=== PATIENT | male | born 1935 ===

== ENCOUNTER 2017-09-06 12:26 | Emergency (ER) | payer SELFPAY ==
[2017-09-06 13:08] VITALS: RESP 18; TEMP 98.3
[2017-09-06 14:44] LABS: BASO % 0.6 % (0.0-2.0); EOS # 0.2 K/uL (0.0-0.7); EOS % 2.6 % (0.0-4.0); HEMOGLOBIN 13.5 g/dL (12.0-18.0); LYMPH # 1.9 K/uL (1.0-4.3); LYMPH % 24.3 % (20.0-40.0); MEAN CELL VOLUME 87.8 fl (80.0-94.0); MEAN CORPUSCULAR HEMOGLOBIN 29.8 pg (27.0-31.0); MEAN PLATELET VOLUME 7.8 fl (7.2-11.7); MONO # 0.7 K/uL (0.0-0.8); MONO % 8.6 % (0.0-10.0); NEUT % 63.9 % (50.0-75.0); RBC 4.52 Mil/uL (4.40-5.90); RED CELL DISTRIBUTION WIDTH 14.5 % (11.5-14.5); WHITE BLOOD COUNT 7.8 K/uL (4.8-10.8)
[2017-09-06 14:56] LABS: ALB/GLOB RATIO 1.3 (1.0-2.1); ALBUMIN 4.4 g/dL (3.5-5.0); ALT/SGPT 26 U/L (21-72); AST/SGOT 30 U/L (17-59); BLOOD UREA NITROGEN 16 mg/dl (9-20); CALCIUM 9.4 mg/dL (8.4-10.2); GFR AFRICAN-AMERICAN > 60; GFR NON-AFRICAN AMERICAN > 60
--- NOTE | 2017-09-06 14:56 | RAD ---
HISTORY: leg swelling COMPARISON: No prior. TECHNIQUE: Chest PA and lateral FINDINGS: LUNGS: Confluent opacity in the right apex with evidence of volume loss. PLEURA: Pleural thickening versus loculated effusion in the right apex. Small effusion versus scarring in the right lung base. Pleural thickening in the left apex and along the left lateral aspect of the pleural cavity. CARDIOVASCULAR: Mildly enlarged cardiomediastinal silhouette. On while descending aorta. Right deviation of the trachea. OSSEOUS STRUCTURES: The osseous structures demonstrate degenerative changes. VISUALIZED UPPER ABDOMEN: Upper abdomen is suboptimally evaluated. OTHER FINDINGS: None. IMPRESSION: Confluent opacity in the right apex which demonstrates evidence of volume loss. Pleural thickening versus loculated effusion in right apex. Possible right-sided effusion. Chest CT recommended for better evaluation.
[2017-09-06 15:04] LABS: B-TYPE NATRIURETIC PEPTIDE 95.2 pg/ml (0-900)
--- NOTE | 2017-09-06 16:19 | US ---
HISTORY: L leg . PRIORS: None. FINDINGS: 2-D, color and duplex Doppler analysis of the lower extremity venous circulation using routine protocol from the femoral veins through the popliteal veins. Venous compressibility: Normal. Flow and augmentation patterns: Normal. Visualized veins upper third of calf: Normal. On vascular irregular fluid collection in the popliteal fossa. Punctate calcification noted. . There is subcutaneous edema in the calf. Unremarkable right common femoral vein. IMPRESSION: No sonographic or Doppler evidence for DVT in left lower extremity. Other findings as above.
--- NOTE | 2017-09-06 16:29 | ED PDOC ---
Lower Extremity Pain/Injury Time Seen by Provider: 09/06/17 13:39 Chief Complaint (Nursing): Lower Extremity Problem/Injury Chief Complaint (Provider): Lower Extremity Problem/Injury History Per: Patient, Family History/Exam Limitations: no limitations Onset/Duration Of Symptoms: Days (x5) Current Symptoms Are (Timing): Still Present Additional Complaint(s): 82 y/o male presents to the ED for left leg pain, onset five days ago. Patient states he's had atraumatic swelling to the entire left leg for the past five days. Dr. Pace evaluated today and advised hi to come to the ED to rule out DVT. Denies chest pain, shortness of breath, hemoptysis, history of DVT or PE, weakness, and history of CHF. Pt. also c/o L sided lower back pain x 2-3 days. Denies trauma, abdominal pain, hematuria, dysuria. Of note, pain is worse with movement. Past Medical History Reviewed: Historical Data, Nursing Documentation, Vital Signs Vital Signs: Last Vital Signs Temp 98.3 F 09/06/17 13:04 Pulse 50 L 09/06/17 13:04 Resp 18 09/06/17 13:04 BP 136/64 09/06/17 13:04 Pulse Ox 100 09/06/17 13:04 - Medical History PMH: No Chronic Diseases Denies: CHF, Deep Vein Thrombosis, Pulmonary Embolism - Surgical History Surgical History: No Surg Hx - Family History Family History: States: Unknown Family Hx - Allergies Allergies/Adverse Reactions: Allergies Allergy/AdvReac Type Severity Reaction Status Date / Time No Known Allergies Allergy Verified 09/06/17 13:03 Review of Systems ROS Statement: Except As Marked, All Systems Reviewed And Found Negative Cardiovascular: Negative for: Chest Pain Respiratory: Negative for: Shortness of Breath, Hemoptysis Musculoskeletal: Positive for: Leg Pain (left leg swelling) Neurological: Negative for: Weakness Physical Exam - Reviewed Nursing Documentation Reviewed: Yes Vital Signs Reviewed: Yes - Physical Exam Appears: Positive for: Well, Non-toxic, No Acute Distress Head Exam: Positive for: ATRAUMATIC, NORMAL INSPECTION, NORMOCEPHALIC Skin: Positive for: Normal Color, Warm. Negative for: Rash Eye Exam: Positive for: Normal appearance ENT: Positive for: Normal ENT Inspection Neck: Positive for: Normal, Painless ROM Cardiovascular/Chest: Positive for: Regular Rate, Rhythm Respiratory: Positive for: Normal Breath Sounds. Negative for: Respiratory Distress Gastrointestinal/Abdominal: Positive for: Normal Exam, Soft. Negative for: Tenderness Back: Positive for: Normal Inspection, Muscle Spasm (L sided paralumbar muscle spasm ). Negative for: L CVA Tenderness, R CVA Tenderness, Vertebral Tenderness Extremity: Positive for: Other (left leg is non-pitting edema without break in skin integrity, warmth, or erythema in the entire left lower extremity. ) Neurologic/Psych: Positive for: Alert, Oriented - Laboratory Results Result Diagrams: 09/06/17 14:30 09/06/17 14:30 - ECG O2 Sat by Pulse Oximetry: 100 (RA) Pulse Ox Interpretation: Normal Medical Decision Making Medical Decision Making: Time: 1410 Plan: -- B-Type Natriuretic -- CMP -- CBC with differentials -- CXR (PA&LAT) -- IV Insertion -- Duplex Lower Extremity US Time: 145 CXR RESULTS FINDINGS: LUNGS: Confluent opacity in the right apex with evidence of volume loss. PLEURA: Pleural thickening versus loculated effusion in the right apex. Small effusion versus scarring in the right lung base. Pleural thickening in the left apex and along the left lateral aspect of the pleural cavity. CARDIOVASCULAR: Mildly enlarged cardiomediastinal silhouette. On while descending aorta. Right deviation of the trachea. OSSEOUS STRUCTURES: The osseous structures demonstrate degenerative changes. VISUALIZED UPPER ABDOMEN: Upper abdomen is suboptimally evaluated. OTHER FINDINGS: None. IMPRESSION: Confluent opacity in the right apex which demonstrates evidence of volume loss. Pleural thickening versus loculated effusion in right apex. Possible right- sided effusion. Chest CT recommended for better evaluation. Time: 1546 Plan: -- LS SPINE AP/LAT XR Time: 1617 EXTREMITY US RESULTS FINDINGS: 2-D, color and duplex Doppler analysis of the lower extremity venous circulation using routine protocol from the femoral veins through the popliteal veins. Venous compressibility: Normal. Flow and augmentation patterns: Normal. Visualized veins upper third of calf: Normal. On vascular irregular fluid collection in the popliteal fossa. Punctate calcification noted. . There is subcutaneous edema in the calf. Unremarkable right common femoral vein. IMPRESSION: No sonographic or Doppler evidence for DVT in left lower extremity. Other findings as above. Time: 1636 Plan: -- CT Chest w/o Contrast Time: 1735 LUMBAR SPINE XR RESULTS FINDINGS: BONES: Levoconvex curvature of the lumbar spine centered at L2. No listhesis. Mild wedge deformities of L1 and L2. Multilevel endplate changes. DISC SPACES: Multilevel disc space narrowing. OTHER FINDINGS: None. IMPRESSION: Mild age anterior wedge deformities of L1 and L2. If there is clinical concern for acute lumbar spine fracture, MRI can be obtained to further characterize acuity. Time: 1756 CXR RESULTS GS: Parenchymal scarring with volume loss right upper lobe. Less severe scarring left upper lobe with volume loss, mild. Calcified granuloma MEDIASTINUM: Unremarkable thoracic aorta. No aneurysm. Normal sized heart. Main pulmonary artery unremarkable. No vascular congestion. Hilar retraction on the right. PLEURA: Extensive pleural parenchymal thickening, scarring on the right. Focal pleural thickening and pleural reaction on the left. BONES: No fracture. No destructive lesion. Focal thickening of lateral 5th rib likely the sequela of prior trauma. UPPER ABDOMEN: Grossly unremarkable. OTHER FINDINGS: Dilatation of the proximal esophagus without distal stricture. The affected segment measures approximately 6 cm. IMPRESSION: Asymmetric upper lobe pleural parenchymal thickening and scarring right substantially greater than left. Overall findings suggest infectious/ inflammatory etiology likely granulomatous. Additional benign and/or incidental findings described above. CT chest w/o contrast: Asymmetric upper lobe pleural parenchymal thickening and scarring right substantially greater than left. Overall findings suggest infectious/inflammatory etiology likely granulomatous. Pt. and son informed of CT results and need to f/u with PMD for further testing. Both agree with care. Dr. Townsend, podiatry resident, informed of US results and will notify Dr. Pace of it. Scribe Attestation: Documented by Eladia Chavez, acting as a scribe for Ramy Dickey PA-C. Provider Scribe Attestation: All medical record entries made by the Scribe were at my direction and personally dictated by me. I have reviewed the chart and agree that the record accurately reflects my personal performance of the history, physical exam, medical decision making, and the department course for this patient. I have also personally directed, reviewed, and agree with the discharge instructions and disposition. Disposition - Clinical Impression Clinical Impression: Leg pain - Patient ED Disposition Is Patient to be Admitted: No - Disposition Referrals: Shabnam Villafuerte [Outside] Slick Pace DPM [Medical Doctor] - Disposition: Routine/Home Disposition Time: 17:00 Condition: STABLE Additional Instructions: Follow up with Dr. Pace for further evaluation. Return to ED immediately if symptoms worsen. Instructions: How to Use Crutches, Knee Sprain (DC) Forms: [employer] (Slovak) Print Language: GEORGIAN
--- NOTE | 2017-09-06 17:46 | RAD ---
PROCEDURE: Radiographs of the Lumbar Spine. HISTORY: pain COMPARISON: No prior. FINDINGS: BONES: Levoconvex curvature of the lumbar spine centered at L2. No listhesis. Mild wedge deformities of L1 and L2. Multilevel endplate changes. DISC SPACES: Multilevel disc space narrowing. OTHER FINDINGS: None. IMPRESSION: Mild age anterior wedge deformities of L1 and L2. If there is clinical concern for acute lumbar spine fracture, MRI can be obtained to further characterize acuity.
--- NOTE | 2017-09-06 17:58 | CT ---
Date of service: 09/06/2017 PROCEDURE: CT Chest without contrast HISTORY: R apical mass on CXR COMPARISON: September 06, 2017. Two-view chest TECHNIQUE: Contiguous axial images were obtained through the chest without intravenous contrast enhancement. Sagittal and coronal reconstructions were performed. Radiation dose (DLP): 540.72 mGy-cm. This CT exam was performed using one or more of the following dose reduction techniques: Automated exposure control, adjustment of the mA and/or kV according to patient size, and/or use of iterative reconstruction technique. FINDINGS: LUNGS: Parenchymal scarring with volume loss right upper lobe. Less severe scarring left upper lobe with volume loss, mild. Calcified granuloma MEDIASTINUM: Unremarkable thoracic aorta. No aneurysm. Normal sized heart. Main pulmonary artery unremarkable. No vascular congestion. Hilar retraction on the right. PLEURA: Extensive pleural parenchymal thickening, scarring on the right. Focal pleural thickening and pleural reaction on the left. BONES: No fracture. No destructive lesion. Focal thickening of lateral 5th rib likely the sequela of prior trauma. UPPER ABDOMEN: Grossly unremarkable. OTHER FINDINGS: Dilatation of the proximal esophagus without distal stricture. The affected segment measures approximately 6 cm. IMPRESSION: Asymmetric upper lobe pleural parenchymal thickening and scarring right substantially greater than left. Overall findings suggest infectious/inflammatory etiology likely granulomatous. Additional benign and/or incidental findings described above.
[2017-09-06 19:21] VITALS: BP 113/74; PULSE 57
[2017-09-06 22:32] VITALS: O2SAT 100
== END 2017-09-06 19:26 | disposition home or self-care (01) ==
LOC: H.ER 12:26
DX: M79.605 Pain in left leg (principal)